=== PATIENT | female | born 1990 | race Caucasian/White ===

== ENCOUNTER 2017-04-04 06:57 | Emergency (ER) | payer OTHER ==
[~2017-04-04] VITALS: Ht 157.5 cm; Wt 53.0 kg
[2017-04-04 07:03] VITALS: BP 100/58; PULSE 82; RESP 14; TEMP 98.1; O2SAT 99
--- NOTE | 2017-04-04 07:53 | PD ---
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 She has stuck herself in the finger. She denies any other issues or injuries. Modifying Factors: None Associated Signs & Symptoms: Needlestick injury Risk Factors: None PFSH Social History Tobacco Use: No Allergies-Medications (Allergen,Severity, Reaction): Coded Allergies: No Known Allergies (Unverified , 04/04/17) Reported Meds & Prescriptions Reported Meds & Active Scripts Active No Active Prescriptions or Reported Medications Review of Systems Except as stated in HPI: all other systems reviewed are Neg Physical Exam Narrative GENERAL: Well-developed young female patient currently in no acute distress. SKIN: Focused skin assessment warm/dry. There is a small puncture wound to her left index finger. HEAD: Atraumatic. Normocephalic. EYES: Pupils equal and round. No scleral icterus. No injection or drainage. ENT: No nasal bleeding or discharge. Mucous membranes pink and moist. NECK: Trachea midline. No JVD. CARDIOVASCULAR: Regular rate and rhythm. No murmur appreciated. RESPIRATORY: No accessory muscle use. Clear to auscultation. Breath sounds equal bilaterally. GASTROINTESTINAL: Abdomen soft, non-tender, nondistended. Hepatic and splenic margins not palpable. MUSCULOSKELETAL: No obvious deformities. No clubbing. No cyanosis. No edema. NEUROLOGICAL: Awake and alert. No obvious cranial nerve deficits. Motor grossly within normal limits. Normal speech. PSYCHIATRIC: Appropriate mood and affect; insight and judgment normal. Data Data Last Documented VS Vital Signs Date Time Temp Pulse Resp B/P (MAP) Pulse Ox O2 Delivery O2 Flow Rate FiO2 04/04/17 07:03 98.1 82 14 100/58 (72) 99 Orders Orders Hepatitis Profile (04/04/17 08:44) Hiv Antibody Screen (04/04/17 08:44) Lamivudine (Epivir) (04/04/17 09:00) Zidovudine (Retrovir) (04/04/17 09:00) Lopinavir-Ritonavir 200-50 Mg (Kaletra 2 (2/15/18 09:00) Tetanus/Diphtheria Tox Adult (Tetanus/Di (04/04/17 09:00) Non-Formulary Drug (04/04/17 09:30) MDM Medical Decision Making Medical Screen Exam Complete: Yes Emergency Medical Condition: Yes Medical Record Reviewed: Yes Differential Diagnosis Needlestick injury Narrative Course Laboratory testing sent. Post exposure prophylaxis given in the ER. Bloods drawn from both source patient and exposed patient. She is recommended to follow-up with employee health tomorrow for follow-up of this issue. Return for new issues as needed. Tetanus was updated and hepatitis B vaccination given considering patient has not had these vaccinations done. Patient is on her first day at work, has not received full vaccinations. I have counseled the patient extensively regarding her risk factors and follow-up. All questions have been answered with use of slot operations manager as well. Patient states understanding. Diagnosis Primary Impression: Needlestick injury accident with exposure to body fluid Med/Other Pt SpecificInfo: Prescription(s) given Scripts Emtricitabine-Tenofovir Disoproxil Fumarate (Truvada) 200-300 Mg Tab 1 TAB PO DAILY for Mgmt Viral Infection, #28 TAB 0 Refills Prov: Vickie Gama MD 04/04/17 Raltegravir (Isentress) 400 Mg Tab 400 MG PO BID for Mgmt Viral Infection for 28 Days, TAB 0 Refills Prov: Vickie Gama MD 04/04/17 Disposition: 01 DISCHARGE HOME Condition: Stable Vickie Gama MD Apr 04, 2017 07:53
[2017-04-04] MEDS ORDERED: TETANUS/DIPHTHERIA TOXOID ADULT 0.5 ML VIAL IM ONE (09:00)
[2017-04-04] MEDS ORDERED: LOPINAVIR/RITONAVIR 200 MG/50 MG TAB PO ONE (09:00)
[2017-04-04] MEDS ORDERED: ZIDOVUDINE 100 MG CAP PO ONE (09:00)
[2017-04-04] MEDS ORDERED: HEPATITIS B INFANT/ADOLESCENT VACCINE 10 MCG/0.5 ML VIAL IM ONE (09:15)
[2017-04-04] MEDS ORDERED: HEPATITIS B VACCINE 20 MCG/ML IM ONE (09:30)
[2017-04-04] MEDS ORDERED: RALT400 PO (09:45)
[2017-04-04] MEDS ORDERED: TRUV200300 PO (09:45)
== END 2017-04-04 10:11 | disposition home or self-care (01) ==
LOC: NEPC 06:57
DX: S61.231A Puncture wound without foreign body of left index finger without damage to nail, initial encounter (principal); W46.0XXA Contact with hypodermic needle, initial encounter; Y99.0 Civilian activity done for income or pay; Z77.21 Contact with and (suspected) exposure to potentially hazardous body fluids; Z23 Encounter for immunization
CPT/HCPCS: 90471; 90472; 90714